=== PATIENT | female | born 1970 | race Caucasian/White ===

== ENCOUNTER 2018-09-13 10:40 | Emergency (ER) | payer MEDICARE ==
[~2018-09-13] VITALS: Ht 180.3 cm; Wt 89.8 kg
--- NOTE | 2018-09-13 10:45 | NUR ---
[id number] C/C SYNCOPAL EPISODE WHILE WALKING,+KO, -SOB,-INJURY, PAIN ON THE RIGHT SIDE OF HEAD AND LEFT KNEE. ALSO C/O FEELING LIGHTHEADED, TO ER BED 2, HOOKED TO MONITOR, CHANGED TO GOWN, AWAITING MD JORDAN
--- NOTE | 2018-09-13 11:00 | NUR ---
KYRA BEDOLLA AT BEDSIDE
[2018-09-13 11:20] LABS: BASOPHILS % (AUTO) 0.7 % (0.0-2.0); EOSINOPHILS % (AUTO) 1.5 % (0.0-6.0); HEMATOCRIT 46 % (33-45); HEMOGLOBIN 15.4 g/dL (11.5-14.8); LYMPHOCYTES # (AUTO) 1.7 /CMM (0.8-4.8); LYMPHOCYTES % (AUTO) 31.6 % (20.0-44.0); MEAN CORPUSCULAR HGB CONC 34 g/dl (31.0-36.0); MEAN CORPUSCULAR VOLUME 88 fL (82-100); MONOCYTES # (AUTO) 0.3 /CMM (0.1-1.30); MONOCYTES % (AUTO) 5.3 % (2.0-12.0); NEUTROPHILS # (AUTO) 3.3 /CMM (1.8-8.9); NEUTROPHILS % (AUTO) 60.9 % (43.0-81.0); PLATELET COUNT (AUTO) 107 /CMM (150-450); WHITE BLOOD COUNT (AUTO) 5.5 K/uL (4.3-11.0)
[2018-09-13] MEDS ORDERED: IV NS 0.9% 1,000 ML BAG IV ONE ×2 (11:30→12:00)
[2018-09-13] MEDS ORDERED: ACETAMINOPHEN 325 MG TABLET PO ONE (11:30)
[2018-09-13 11:38] LABS: CALCIUM, SERUM 8.9 mg/dL (8.5-10.1); CARBON DIOXIDE 29 mmol/L (21-32); CHLORIDE 96 mmol/L (98-107); SODIUM SERUM 133 mmol/L (136-145); UREA NITROGEN, BLOOD 10 mg/dL (7-18)
[2018-09-13 11:42] LABS: ALKALINE PHOSPHATASE 103 U/L (46-116); ASPARTATE AMINOTRANSFERASE 63 U/L (15-37); BILIRUBIN,DIRECT 0.1 mg/dL (0.0-0.2); BILIRUBIN,TOTAL 0.3 mg/dL (0.2-1.0)
[2018-09-13 11:43] LABS: ALBUMIN 3.5 g/dL (3.4-5.0); TOTAL PROTEIN, SERUM 7.5 g/dL (6.4-8.2)
[2018-09-13] MEDS ORDERED: ACETAMINOPHEN 325 MG TABLET ONE (11:45)
[2018-09-13 11:49] LABS: ALANINE AMINOTRANSFERASE 112 U/L (12-78)
[2018-09-13 11:50] LABS: GLUCOSE 546 mg/dL (74-106)
[2018-09-13] MEDS ORDERED: INSULIN REGULAR, HUMAN 100 UNIT/ML 10 ML VIAL IV ONE ×2 (12:00→12:30)
[2018-09-13] MEDS ORDERED: INSULIN REGULAR, HUMAN 100 UNIT/ML 10 ML VIAL ONE (12:17)
--- NOTE | 2018-09-13 13:09 | NUR ---
URINE SAMPLE SENT TO LAB
--- NOTE | 2018-09-13 13:50 | NUR ---
SANDWICH AND BOTTLE OF WATER GIVEN TO PT
--- NOTE | 2018-09-13 14:05 | NUR ---
IV removed. Catheter intact and site benign. Pressure and 4x4 applied to site. No bleeding noted. Patient discharged in stable condition, assisted to waiting room as someone will pick-up the patient. Written and verbal after care instructions given. Patient verbalizes understanding of instruction.
[2018-09-13 14:07] VITALS: BP 142/86
== END 2018-09-13 14:08 | disposition home or self-care (01) ==
LOC: ER 10:46
DX: S80.02XA Contusion of left knee, initial encounter (principal); R55 Syncope and collapse; E11.65 Type 2 diabetes mellitus with hyperglycemia; F31.9 Bipolar disorder, unspecified; Z98.890 Other specified postprocedural states; Z91.018 Allergy to other foods; Z88.8 Allergy status to other drugs, medicaments and biological substances; W22.8XXA Striking against or struck by other objects, initial encounter; Y93.01 Activity, walking, marching and hiking; Y92.89 Other specified places as the place of occurrence of the external cause; Y99.8 Other external cause status
CPT/HCPCS: 36415; 70450; 71045; 73564; 80048; 80076; 82010; 82962 ×2; 84484; 84703; 85025; 85730; 93005; 96361; 96374; 99284; A4606; J1815; J7030 ×2

== ENCOUNTER 2018-11-14 12:24 | Inpatient (IN) | payer MEDICARE ==
[~2018-11-14] VITALS: Ht 172.7 cm; Wt 99.3 kg
--- NOTE | 2018-11-14 12:42 | NUR ---
IV ACCESS INITIATED ON THE LEFT AC G18, BLOOD DRAWNED AND SENT TO LAB.
--- NOTE | 2018-11-14 12:44 | NUR ---
DR HARLEY FARR. AWAITING CALL BACK.
[2018-11-14 12:47] LABS: BASOPHILS % (AUTO) 0.2 % (0.0-2.0); HEMATOCRIT 41 % (33-45); HEMOGLOBIN 13.3 g/dL (11.5-14.8); LYMPHOCYTES # (AUTO) 0.8 /CMM (0.8-4.8); LYMPHOCYTES % (AUTO) 4.6 % (20.0-44.0); MEAN CORPUSCULAR HGB CONC 33 g/dl (31.0-36.0); MEAN CORPUSCULAR VOLUME 88 fL (82-100); MONOCYTES # (AUTO) 0.7 /CMM (0.1-1.30); MONOCYTES % (AUTO) 4.4 % (2.0-12.0); NEUTROPHILS # (AUTO) 15.6 /CMM (1.8-8.9); NEUTROPHILS % (AUTO) 90.8 % (43.0-81.0); PLATELET COUNT (AUTO) 102 /CMM (150-450); RED BLOOD CELL COUNT(AUTO) 4.62 MIL/uL (4.0-5.2); WHITE BLOOD COUNT (AUTO) 17.1 K/uL (4.3-11.0)
[2018-11-14 12:58] LABS: CALCIUM, SERUM 8.5 mg/dL (8.5-10.1); CREATININE 1.7 mg/dL (0.6-1.3); POTASSIUM 4.2 mmol/L (3.5-5.1)
[2018-11-14] MEDS ORDERED: INSU100V11 SQ (12:58)
[2018-11-14] MEDS ORDERED: HYDR28.32 TP (12:58)
[2018-11-14] MEDS ORDERED: FLUT1BLS IH (12:58)
[2018-11-14] MEDS ORDERED: METF-440 PO (12:58)
[2018-11-14] MEDS ORDERED: PREG50CA PO (12:58)
[2018-11-14] MEDS ORDERED: CELE200C PO (12:58)
[2018-11-14] MEDS ORDERED: GABA-534 PO (12:58)
[2018-11-14] MEDS ORDERED: IV NS 0.9% 1,000 ML BAG IV ONE (13:00)
[2018-11-14] MEDS ORDERED: LORAZEPAM INJ 2 MG/ML VIAL IV ONE (13:00)
[2018-11-14] MEDS ORDERED: CEFTRIAXONE 1GM BAG (ER ONLY) 1 GM/50 ML PIGGYBACK IV ONE (13:00)
[2018-11-14] MEDS ORDERED: FLUO40CA8 PO (13:01)
[2018-11-14] MEDS ORDERED: OLAN10TA3 PO (13:01)
[2018-11-14] MEDS ORDERED: ALPR2TAB2 PO (13:01)
[2018-11-14] MEDS ORDERED: OLAN15TA3 PO (13:01)
[2018-11-14] MEDS ORDERED: LAMO200T2 PO (13:01)
[2018-11-14] MEDS ORDERED: ZOLP10TA2 PO (13:01)
--- NOTE | 2018-11-14 13:09 | NUR ---
PT AMBULATED TO BATHROOM, UNABLE TO URINATE, REFUSES I & O CATH
[2018-11-14 13:30] VITALS: BP 100/52
[2018-11-14] MEDS ORDERED: CEFTRIAXONE 1GM BAG (ER ONLY) 50 ML IV ONE (14:10)
[2018-11-14] MEDS ORDERED: LORAZEPAM 1 MG TABLET ONE (14:11)
--- NOTE | 2018-11-14 14:11 | NUR ---
MS BOSWELL NOTE PAGED DR. SOUZA OFFICE FOR ADMISSION ORDERS, AWAITING RESPONSE. Addendum: 11/14/18 at 1839 by LETI LEIGH RN PLEASE DISREGARD, WRONG TIME
[2018-11-14] MEDS ORDERED: LORAZEPAM INJ 2 MG/ML VIAL ONE (14:18)
[2018-11-14 14:22] LABS: BILIRUBIN,DIRECT 0.5 mg/dL (0.0-0.2); BILIRUBIN,TOTAL 0.9 mg/dL (0.2-1.0)
--- NOTE | 2018-11-14 14:52 | NUR ---
PT NOTED TO BE TACHYCARDIC, W/ ORAL TEMP OF 102.7 ER MADE AWARE.
[2018-11-14] MEDS ORDERED: ACETAMINOPHEN ES 500 MG TABLET PO STA (14:55)
[2018-11-14] MEDS ORDERED: ACETAMINOPHEN ES 500 MG TABLET ONE (14:58)
--- NOTE | 2018-11-14 15:16 | NUR ---
PT SNEHA ADMITTED TOROOM 311, FLUIDS INFUSING 2L OF TOTAL 3 L
--- NOTE | 2018-11-14 15:30 | NUR ---
MS FLASK CLEANER NOTE RECEIVED PT FROM ER VIA WHEELCHAIR WITH DX OF PYELONEPHRITIS. PT IS ALERT AND ORIENTED TO SELF ONLY. NO ACUTE DISTRESS NOTED AT THIS TIME. BREATHING IS EVEN AND UNLABORED ON ROOM AIR. VS OBTAINED PER PROTOCOL. PT REFUSING FULL HEAD TO TOE AND SKIN ASSESSMENT AT THIS TIME. PT REFUSING TO ALLOW THE STAFF TO REVIEW BELONGINGS. EDUCATION PROVIDED, PT STRONGLY REFUSING AT THIS TIME. PT HAS A RIGHT WRIST #20G AND LEFT AC #18G IV THAT ARE PATENT, CLEAN, DRY AND INTACT. PENDING ADMISSION ORDERS FROM DR. SOUZA. UNIT ORIENTATION PROVIDED. BED IS LOCKED AND IN LOWEST POSITION, SIDE RAILS UP X2, BED ALARM ON, CALL LIGHT AND POSSESSIONS WITHIN REACH.
--- NOTE | 2018-11-14 15:33 | NUR ---
MS RN NOTE CONTACTED DR. SOUZA REGARDING ADMISSION ORDERS, AWAITING RESPONSE.
[2018-11-14 16:00] VITALS: BP 100/52
--- NOTE | 2018-11-14 16:00 | NUR ---
MS RN NOTE PAGED DR. SOUZA OFFICE FOR ADMISSION ORDERS, AWAITING RESPONSE.
[2018-11-14] MEDS ORDERED: IV NS 0.9% 1,000 ML BAG IV PRN (17:00)
[2018-11-14] MEDS ORDERED: LORAZEPAM 0.5 MG TABLET PO SCH (17:00)
[2018-11-14] MEDS: INSULIN GLARGINE, 100 UNIT/ML CARTRIDGE SQ SCH (17:00)
[2018-11-14] MEDS ORDERED: ALBUTEROL HALF STRENGTH 1.25 MG/3 ML VIAL.NEB NEB PRN (17:00)
[2018-11-14] MEDS ORDERED: INSULIN ASPART/LISPRO 100 UNIT/ML CARTRIDGE SQ PRN (17:00)
[2018-11-14] MEDS: GABAPENTIN 400 MG CAPSULE PO SCH (17:00)
[2018-11-14] MEDS ORDERED: DEXTROSE 50%-WATER 50 ML DISP.SYRIN IV PRN (17:00)
--- NOTE | 2018-11-14 17:00 | NUR ---
MS RN NOTE ADMISSION ORDERS RECEIVED VIA TELEPHONE READ BACK FROM . PER NO ANTIPYRETICS, HE IS AWARE OF ELEVATED TEMPERATURE AND STILL DOES NOT WANT TO ORDER ANY ADDITIONAL ANTIPYRETICS AT THIS TIME. REVIEWED HOME MEDICATIONS WITH .
--- NOTE | 2018-11-14 17:20 | NUR ---
MS RN NOTE NEURONTIN HELD BECAUSE PT IS STILL SLEEPY AND AT RISK FOR ASPIRATION AT THIS TIME.
[2018-11-14] MEDS ORDERED: BLOOD SUGAR DIAGNOSTIC 1 EACH STRIP IN SCH (17:30)
[2018-11-14] MEDS: BLOOD SUGAR DIAGNOSTIC 1 EACH STRIP IN SCH ×2 (17:32→21:19)
[2018-11-14] MEDS: IV NS 0.9% 1,000 ML IV PRN (17:32)
[2018-11-14 18:37] LABS: ALBUMIN 3.2 g/dL (3.4-5.0); BILIRUBIN,DIRECT 0.3 mg/dL (0.0-0.2); BILIRUBIN,TOTAL 0.9 mg/dL (0.2-1.0); TOTAL PROTEIN, SERUM 7.4 g/dL (6.4-8.2)
--- NOTE | 2018-11-14 18:39 | NUR ---
MS RN CLOSING NOTE PT IS ALERT AND ORIENTED X1. NO ACUTE DISTRESS NOTED AT THIS TIME. BREATHING IS EVEN AND UNLABORED ON ROOM AIR. PT STILL REFUSING FULL HEAD TO TOE AND SKIN ASSESSMENT AT THIS TIME. PT STILL REFUSING TO ALLOW THE STAFF TO REVIEW BELONGINGS. EDUCATION PROVIDED, PT STRONGLY REFUSING AT THIS TIME. RIGHT WRIST #20G IS INFUSING NS @ 75 ML/HR WITHOUT REDNESS OR SWELLING. ASPIRATION PRECAUTIONS MAINTAINED. COOLING MEASURES IN PLACE. LAST TEMPERATURE IS 101.[address] SOUZA NO ANTIPYRETICS TO BE ORDERED FOR THE PT AND HE IS AWARE OF ELEVATED TEMPERATURE. BED IS LOCKED AND IN LOWEST POSITION, SIDE RAILS UP X2, BED ALARM ON, CALL LIGHT AND POSSESSIONS WITHIN REACH. WILL ENDORSE TO FRUIT LOADER NURSE FOR CONTINUITY OF CARE.
--- NOTE | 2018-11-14 19:30 | NUR ---
RN MS OPENING NOTES RECEIVED PATIENT IN BED AWAKE, ALERT AND ORIENTED X1-2, CONFUSED AND DROWSY. VERBALLY RESPONSIVE, ABLE TO MAKE NEEDS KNOWN. BREATHING EVEN AND UNLABORED. NO SOB NOTED .TOLERATING ROOM AIR. IV ON RIGHT WRIST INTACT AND PATENT WITH NS RUNNING AT 75ML/HR. SKIN DRY AND WARM TO TOUCH. AFEBRILE NOW. ASSISTED TO BEDSIDE COMMODE DUE TO UNSTEADY GAIT. ALL OTHER NEEDS ATTENDED TO. SAFETY MEASURES IN PLACE. CALL LIGHT WITHIN REACH. WILL CONTINUE TO MONITOR.
[2018-11-14 20:00] VITALS: BP 91/53
[2018-11-14] MEDS: HEPARIN SODIUM, PORCINE 5000 UNITS/1 ML VIAL SQ SCH (21:25)
[2018-11-14] MEDS: ATORVASTATIN 40 MG TABLET PO SCH (21:25)
[2018-11-14] MEDS ORDERED: INSULIN LISPRO/ASPART 100 UNIT/ML CARTRIDGE SQ ONE (21:52)
[2018-11-14] MEDS: INSULIN ASPART/LISPRO 100 UNIT/ML CARTRIDGE SQ PRN (22:09)
--- NOTE | 2018-11-15 02:56 | NUR ---
RN MS NOTES TRANSFERRED CARE TO ELBERT CRANDALL. PATIENT IN STABLE CONDITION.
--- NOTE | 2018-11-15 03:11 | NUR ---
RN NOTES RECEIVED ENDORSEMENT FROM ELBERT FLORES FOR Pt's BRENNON. NO S/S OF ACUTE DISTRESS OR SOB NOTED. WILL CONTINUE TO MONITOR Pt's CONDITION AND SAFETY THROUGHOUT THE REMAINDER OF THE SHIFT.
[2018-11-15] MEDS: INSULIN GLARGINE, 100 UNIT/ML CARTRIDGE SQ SCH ×2 (05:24→17:42)
[2018-11-15] MEDS: BLOOD SUGAR DIAGNOSTIC 1 EACH STRIP IN SCH ×4 (06:37→21:10)
--- NOTE | 2018-11-15 06:45 | NUR ---
RN CLOSING NOTES NO SIGNIFICANT CHANGES IN Pt's CONDITION. Pt REMAINS STABLE AT THIS TIME. NO S/S OF ACUTE DISTRESS OR SOB NOTED DURING THE NIGHT. ALL NEEDS MET AND ATTENDED. Pt IS CURRENTLY RESTING IN BED COMFORTABLY. RESPIRATIONS EVEN AND UNLABORED. SAFETY MEASURES IN PLACE. BED LOW, LOCKED, HOB ELEVATED, SIDE RAILS UP, CALL LIGHT AND BEDSIDE TABLE WITHIN REACH. BED ALARM ON. WILL ENDORSE TO DAYSHIFT RN FOR Pt's BRENNON.
[2018-11-15] MEDS: INSULIN ASPART/LISPRO 100 UNIT/ML CARTRIDGE SQ PRN ×3 (06:47→21:11)
[2018-11-15 07:25] LABS: BASOPHILS % (AUTO) 0.1 % (0.0-2.0); HEMATOCRIT 35 % (33-45); HEMOGLOBIN 11.7 g/dL (11.5-14.8); LYMPHOCYTES # (AUTO) 0.7 /CMM (0.8-4.8); LYMPHOCYTES % (AUTO) 7.9 % (20.0-44.0); MEAN CORPUSCULAR HGB CONC 33 g/dl (31.0-36.0); MEAN CORPUSCULAR VOLUME 87 fL (82-100); MONOCYTES # (AUTO) 0.5 /CMM (0.1-1.30); MONOCYTES % (AUTO) 5.9 % (2.0-12.0); NEUTROPHILS # (AUTO) 7.7 /CMM (1.8-8.9); NEUTROPHILS % (AUTO) 86.1 % (43.0-81.0); PLATELET COUNT (AUTO) 84 /CMM (150-450); RED BLOOD CELL COUNT(AUTO) 4.05 MIL/uL (4.0-5.2); WHITE BLOOD COUNT (AUTO) 8.9 K/uL (4.3-11.0)
[2018-11-15 08:00] VITALS: BP 110/61
--- NOTE | 2018-11-15 08:00 | NUR ---
rn notes received patient in the bed a/o x1/2, patient has no acute respiratory distress, v/s taken T-101 F, applied cooling ice bags. Scheduled medication administered. infusing NS at 75 ml/hr intact. patient turn and reposition self in the bed. patient unsteady gait. needs attended and anticipated, bed alarm on, safety precaution mainlined all the time.
[2018-11-15 08:08] LABS: CALCIUM, SERUM 8.1 mg/dL (8.5-10.1); CREATININE 1.1 mg/dL (0.6-1.3); POTASSIUM 3.5 mmol/L (3.5-5.1)
[2018-11-15 08:54] LABS: ALBUMIN 2.5 g/dL (3.4-5.0); BILIRUBIN,TOTAL 0.6 mg/dL (0.2-1.0); CALCIUM, SERUM 8.2 mg/dL (8.5-10.1); CREATININE 1.1 mg/dL (0.6-1.3); POTASSIUM 3.5 mmol/L (3.5-5.1); TOTAL PROTEIN, SERUM 6.4 g/dL (6.4-8.2)
[2018-11-15] MEDS ORDERED: LORAZEPAM 1 MG TABLET PO SCH (09:00)
--- NOTE | 2018-11-15 09:00 | NUR ---
RN NOTES RECHECKED T-99.5 , STILL APPLIED ICE COOLING MEASURES. PATIENT UNSTEADY GAIT, SAFETY PRECAUTION MAINTAINED ALL THE TIME, CALL LIGHT WITHIN TO REACH.SCHEDULED MEDICATION ADMINISTERED.
[2018-11-15] MEDS: Fluoxetine 10 mg capsule PO SCH (09:51)
[2018-11-15] MEDS: METFORMIN 500 MG TABLET PO SCH (09:51)
[2018-11-15] MEDS: GABAPENTIN 400 MG CAPSULE PO SCH ×3 (09:52→16:38)
[2018-11-15] MEDS: NICOTINE PATCH (21MG) 21 MG PATCH.TD24 TD SCH (09:52)
[2018-11-15] MEDS: OLANZAPINE 10 MG TABLET PO SCH (09:52)
[2018-11-15] MEDS: LORAZEPAM 0.5 MG TABLET PO SCH ×2 (09:52→17:28)
[2018-11-15] MEDS: HEPARIN SODIUM, PORCINE 5000 UNITS/1 ML VIAL SQ SCH ×2 (09:57→21:05)
[2018-11-15] MEDS: CEFTRIAXONE 1 G in IV D5W 50 ML IV SCH (12:04)
[2018-11-15 15:52] VITALS: BP 131/74
--- NOTE | 2018-11-15 15:55 | NUR ---
RN NOTES STILL T-100.5F, APPLIED ICE APPLICANT , PUT ROOM IN LOW COOLING TEMPERATURE. INFUSING NS AT 75 ML/HR INTACT. MONITORING CLOSELY.
--- NOTE | 2018-11-15 15:55 | NUR ---
RN NOTES CALLED Dr SOUZA AND GET ORDER TYLENOL 500 MG PO PRN Q 4 HR, ORDER TAKEN AND CARRIED OUT FOR T-103 F.
[2018-11-15 16:00] VITALS: BP_SYST 131; BP_SYST 135; BP_DIAS 71; BP_DIAS 74
[2018-11-15] MEDS: TRAMADOL HCL 50 MG TABLET PO PRN (16:38)
--- NOTE | 2018-11-15 16:38 | NUR ---
RN NOTES ADMINISTERED ULTRAM 50 MG PO TX FOR PAIN GENERALIZED, V/S STABLE, ALSO ADMINISTERED SCHEDULED MEDICATION, CALL LIGHT WITHIN TO REACH, CONTINUED MONITORING.
[2018-11-15] MEDS: ACETAMINOPHEN ES 500 MG TABLET PO PRN (17:34)
--- NOTE | 2018-11-15 17:40 | NUR ---
RN NOTES ADMINISTERED TYLENOL 500 MG PO PRN FOR FEVER 103 Q 4 HR PRESCRIBED, CONTINUED MONITORING.
--- NOTE | 2018-11-15 18:30 | NUR ---
RN NOTES AFTER COOLING BATH AND TYLENOL T-98.5 AT THIS TIME, PATIENT RESTING IN THE BED. BS-135MG/DL COVERAGE GIVEN, ALSO ADMINISTERED SCHEDULED MEDICATION. INFUSING NS AT 75 ML/HR INTACT ON LEFT AC AREA. BED ALARM ON. CALL LIGHT WITHIN TO REACH. ENDORSED ONCOMING NURSE FOR PLAN OF CARE.
[2018-11-15] MEDS: IV NS 0.9% 1,000 ML IV PRN (18:42)
--- NOTE | 2018-11-15 19:30 | NUR ---
MS RN OPENING NOTES Received patient sleeping in bed, easily arousable. Breathing even and unlabored. Not in any distress. Peripheral IV infusing at 75mL/hr. Call light within easy reach. Bed in low, locked position. Patient stable as endorsed by the AM RN> Will continue to monitor accordingly
[2018-11-15 20:00] VITALS: BP 103/55
--- NOTE | 2018-11-15 21:00 | NUR ---
RN NOTES Clarified with Dr. Garcia if okay to give Heparin Na 5,000 units with platelet of 84. Dr. Garcia said to give it.
[2018-11-15] MEDS: ATORVASTATIN 40 MG TABLET PO SCH (21:02)
[2018-11-16] MEDS: ACETAMINOPHEN ES 500 MG TABLET PO PRN (00:13)
--- NOTE | 2018-11-16 00:13 | NUR ---
MS RN NOTES Patient's temperature is 101.6F. Cooling measures in place. Tylenol ES 500mg given as ordered. Will continue to monitor
--- NOTE | 2018-11-16 02:00 | NUR ---
RN NOTES Temperature rechecked- 99.6F. Will continue to monitor
[2018-11-16 02:04] LABS: APPEARANCE,URINE CLEAR (CLEAR); BILIRUBIN,URINE NEGATIVE (NEGATIVE); BLOOD, URINE 1+ Ery/uL (NEGATIVE); COLOR,URINE YELLOW (YELLOW); KETONES,URINE NEGATIVE (NEGATIVE); LEUKOCYTE ESTERASE ,URINE TRACE (NEGATIVE); NITRITE, URINE NEGATIVE (NEGATIVE); PROTEIN,URINE 2+ mg/dl (NEGATIVE); UGLUCOSE NEGATIVE (NEGATIVE)
[2018-11-16 03:09] LABS: BACTERIA,URINE Few /HPF (None Seen); SQUAMOUS EPITHELIAL CELL,UR Few /HPF (None Seen); WBC,URINE 21-50 /HPF (0-3)
--- NOTE | 2018-11-16 04:40 | NUR ---
RN NOTES BSL initial check was 10. Repeated BSL check- 98mg/dL. Lantus not given as BSL was low. Patient has reports decreased oral intake since yesterday. Patient provided snacks
--- NOTE | 2018-11-16 04:45 | NUR ---
RN NOTES Temperature rechecked- 97.8F. Will continue to monitor
[2018-11-16] MEDS: INSULIN GLARGINE, 100 UNIT/ML CARTRIDGE SQ SCH ×2 (04:49→17:00)
[2018-11-16] MEDS: IV NS 0.9% 1,000 ML IV PRN (06:30)
[2018-11-16] MEDS: BLOOD SUGAR DIAGNOSTIC 1 EACH STRIP IN SCH ×4 (06:33→21:20)
[2018-11-16] MEDS: INSULIN ASPART/LISPRO 100 UNIT/ML CARTRIDGE SQ PRN (06:34)
--- NOTE | 2018-11-16 06:35 | NUR ---
RN NOTES BSL 119mg/dL. No insulin coverage given as per sliding scale
--- NOTE | 2018-11-16 06:51 | NUR ---
MS RN CLOSING NOTES Patient still sleeping in bed, easily arousable. Breathing even and unlabored. Not in any distress. Afebrile. Peripheral IV infusing at 75mL/hr. No complaints as of this time. Call light within easy reach. Bed in low, locked position. Will endorse BRENNON to oncoming RN
--- NOTE | 2018-11-16 07:02 | NUR ---
MS RN NOTES PATIENT IN BED EYES CLOSED, EASY TO AROUSE. RESPOND TO VERBAL AND TACTILE STIMULI. NO ACUTE DISTRESS NOTED. BREATHING UNLABORED. NO SOB NOTED. SAFETY MEASURES IN PLACE. CALL LIGHT WITHIN REACH. WILL CONTINUE TO MONITOR ACCORDINGLY.
[2018-11-16 08:00] VITALS: BP 146/88
--- NOTE | 2018-11-16 08:00 | NUR ---
MS RN NOTES IV ACCESS ACCIDENTALLY PULLED OUT BY PATIENT. INSERTED NEW IV LINE ON RIGHT FOREARM GAUGE 22 INTROCAN X 1 ATTEMPT WITH GOOD BLOOD RETURN . SECURED WITH TRANSPARENT DRESSING AND DATED. PATIENT TOLERATED WELL.
[2018-11-16] MEDS: GABAPENTIN 400 MG CAPSULE PO SCH ×3 (09:43→17:54)
[2018-11-16] MEDS: OLANZAPINE 10 MG TABLET PO SCH (09:43)
[2018-11-16] MEDS: Fluoxetine 10 mg capsule PO SCH (09:43)
[2018-11-16] MEDS: LORAZEPAM 0.5 MG TABLET PO SCH ×2 (09:43→17:54)
[2018-11-16] MEDS: METFORMIN 500 MG TABLET PO SCH (09:44)
[2018-11-16] MEDS: HEPARIN SODIUM, PORCINE 5000 UNITS/1 ML VIAL SQ SCH ×2 (09:45→21:18)
[2018-11-16] MEDS: NICOTINE PATCH (21MG) 21 MG PATCH.TD24 TD SCH (09:46)
[2018-11-16] MEDS: CEFTRIAXONE 1 G in IV D5W 50 ML IV SCH (13:24)
[2018-11-16 16:00] VITALS: BP 108/66
--- NOTE | 2018-11-16 19:00 | NUR ---
MS RN NOTES PATIENT IN BED ALERT ORIENTED X 2-3, NO ACUTE DISTRESS NOTED. BREATHING UNLABORED. NO SOB NOTED. DUE MEDICATIONS GIVEN, NO ASE NOTED. NEEDS ATTENDED AND ANTICIPATED. KEPT CLEAN DRY AND COMFORTABLE.SAFETY MEASURES IN PLACE. CALL LIGHT WITHIN REACH. ENDORSED TO NIGHT NURSE FOR CONITUITY OF CARE.
--- NOTE | 2018-11-16 19:51 | NUR ---
MS/RN OPENING NOTES RECEIVED PATIENT IN BED, RESTING COMFORTABLY IN BED, ABLE TO VERBALIZE NEEDS, ASSISTED TO BATHROOM , REQUIRE ASSISTANCE, SKIN WARM TO TOUCH WILL MONITOR , PROVIDED JUICE AND IV ON WITH NO S/S OF INFILTRATION. BED LOCKED, CALL LIGHTS WITHIN REACH. INSTRUCTED TO CALL FOR ASSISTANCE FOR SAFETY.
[2018-11-16 20:00] VITALS: BP 112/65
[2018-11-16] MEDS: ATORVASTATIN 40 MG TABLET PO SCH (21:24)
--- NOTE | 2018-11-16 23:22 | NUR ---
MS/RN NOTES PATIENT BLOOD SUGAR CHECKED AT 139, REFUSED TO HAVE COVERAGE OF 2 UNITS SLIDING SCALE STATED SHE IS NOT GOING TO EAT DURING THE NIGHT.
[2018-11-17] MEDS: BLOOD SUGAR DIAGNOSTIC 1 EACH STRIP IN SCH ×4 (04:30→21:07)
[2018-11-17] MEDS: INSULIN GLARGINE, 100 UNIT/ML CARTRIDGE SQ SCH ×2 (04:44→17:00)
--- NOTE | 2018-11-17 04:47 | NUR ---
ms/rn notes PATIENT BLOOD SUGAR CHECK AT 108 LEVEL, REFUSE TO HAVE LANTUS INSULIN PATIENT HAS POOR APPETITE AT THIS TIME.
--- NOTE | 2018-11-17 05:50 | NUR ---
TRANSFER OF CARE RECEIVE REPORT FROM VERIFICATION MANAGER RN AT 0550 PT IN BED TRANSFER FROM 309-1 TO RM 207-1. PT A/O X 3, ALL BELONGINGS WITH PATIENT. NEEDS ATTENDED AND ANTICIPATED. KEPT CLEAN AND DRY, PT STABLE CONDITION NO S/S OF DISTRESS. WILL ENDORSE NEXT SHIFT POC.
--- NOTE | 2018-11-17 05:57 | NUR ---
309-1 transfer to 207 MS/RN NOTES PATIENT ABLE TO SLEEP DURING THE NIGHT, ASSIST TO BATHROOM FOR SAFETY, ABLE TO DRINK FLUIDS. RESPIRATIONS EVEN AND UNLABORED, SKIN WARM TO TOUCH. MONITORED FOR ANY CHANGES.BED LOCKED. CALL LIGHTS WITHIN REACH.WILL ENDORSE TO PAO RUTLEDGE 2 RN FOR BRENNON.
[2018-11-17 06:15] VITALS: BP 116/68
[2018-11-17 08:00] VITALS: BP 119/61
--- NOTE | 2018-11-17 08:00 | NUR ---
RN NOTES RECEIVED PATIENT IN THE BED RESTING, NO ACUTE RESPIRATORY DISTRESS, V/S STABLE, REFUSED PAIN AT THIS TIME. PATIENT PREFERRED TO REST. CALL LIGHT WITHIN TO REACH. INFUSING NS AT 75 ML/HR ON RIGHT FA INTACT. CALL LIGHT WITHIN TO REACH, SAFETY PRECAUTION MAINTAINED ALL THE TIME.
[2018-11-17] MEDS: OLANZAPINE 10 MG TABLET PO SCH (10:19)
[2018-11-17] MEDS: NICOTINE PATCH (21MG) 21 MG PATCH.TD24 TD SCH (10:19)
[2018-11-17] MEDS: LORAZEPAM 0.5 MG TABLET PO SCH ×2 (10:19→18:06)
[2018-11-17] MEDS: METFORMIN 500 MG TABLET PO SCH (10:19)
[2018-11-17] MEDS: Fluoxetine 10 mg capsule PO SCH (10:19)
[2018-11-17] MEDS: GABAPENTIN 400 MG CAPSULE PO SCH ×3 (10:19→18:06)
[2018-11-17] MEDS: HEPARIN SODIUM, PORCINE 5000 UNITS/1 ML VIAL SQ SCH ×2 (10:26→21:06)
--- NOTE | 2018-11-17 12:00 | NUR ---
RN NOTES BS-110 MG/DL, NO COVERAGE GIVEN, V/S STABLE, SEEN BY Dr SOUZA , ORDERS TAKEN AND CARRIED OUT, PATIENT STABLE, REFUSED PAIN. CALL LIGHT WITHIN TO REACH. SAFETY PRECAUTION MAINTAINED ALL THE TIME.
[2018-11-17] MEDS: CEFTRIAXONE 1 G in IV D5W 50 ML IV SCH (12:40)
[2018-11-17] MEDS: ACETAMINOPHEN ES 500 MG TABLET PO PRN ×2 (12:54→21:00)
--- NOTE | 2018-11-17 12:54 | NUR ---
RN NOTES V/S TAKEN T-100.7 F, ADMINISTERED TYLENOL 500 ES PO PRN , AND COOLING MEASURE, CONTINUED MONITORING.
--- NOTE | 2018-11-17 14:42 | NUR ---
RN NOTES RECHECKED T -98.1 , INFUSING NS AT 75 ML/HR INTACT. PATIENT RESTING IN THE BED, REFUSED PAIN. WILL MONITORING SAFETY.,
[2018-11-17 16:36] VITALS: BP 132/56
--- NOTE | 2018-11-17 17:00 | NUR ---
RN NOTES BS-91MG/DL HELD LANTUS 20 U, PATIENT EAT 50% OF DINNER. CONTINUED MONITORING.
[2018-11-17] MEDS: IV NS 0.9% 1,000 ML IV PRN (18:11)
--- NOTE | 2018-11-17 18:30 | NUR ---
RN NOTES PATIENT STABLE, REFUSED PAIN, NO ACUTE DISTRESS. SCHEDULED MEDICATION ADMINISTERED, V/STABLE. INFUSING NS AT 75 ML/HR ON RIGHT FA INTACT. CALL LIGHT WITHIN TO REACH. NEEDS ATTENDED AND ANTICIPATED, CALL LIGHT WITHIN TO REACH,PATIENT USING BATHROOM. BED ALARM ON. ENDORSED ONCOMING NURSE FOR PLAN OF CARE.
--- NOTE | 2018-11-17 19:31 | NUR ---
MS RN RECEIVE PT IN BED A/O X 3 RESPIRATIONS EVEN AND UNLABORED, NO SOB NOTED, NO DISTRESS, SAFETY MEASURES IN PLACE. WILL CONTINUE TO MONITOR.
[2018-11-17 20:00] VITALS: BP 118/58
--- NOTE | 2018-11-17 20:00 | NUR ---
TEMPERATURE AT 101.2 COOLING MEASURES PROVIDED WILL CONT TO MONITOR AND RE CHECK TEMP
[2018-11-17 20:19] VITALS: BP 118/58
[2018-11-17] MEDS: ZOLPIDEM TARTRATE 10 MG TABLET PO PRN (21:00)
[2018-11-17] MEDS: ATORVASTATIN 40 MG TABLET PO SCH (21:00)
[2018-11-17] MEDS: INSULIN ASPART/LISPRO 100 UNIT/ML CARTRIDGE SQ PRN (21:07)
--- NOTE | 2018-11-17 21:54 | NUR ---
BLOOD SUGAR 156 MG/DL PATIENT REFUSED SLIDING SCALE INSULIN OF 2 UNITS DESPITE EXPLAINING RISKS AND BENEFITS PT A/O X 3 OFFERED 3 TIMES STILL REFUSED PT VERBALIZED "MY BLOOD SUGAR IS OKAY"
[2018-11-18] MEDS: INSULIN GLARGINE, 100 UNIT/ML CARTRIDGE SQ SCH ×2 (05:46→17:16)
[2018-11-18] MEDS: BLOOD SUGAR DIAGNOSTIC 1 EACH STRIP IN SCH ×4 (05:46→21:13)
[2018-11-18] MEDS: INSULIN ASPART/LISPRO 100 UNIT/ML CARTRIDGE SQ PRN ×4 (05:48→22:09)
--- NOTE | 2018-11-18 06:03 | NUR ---
MS RN CLOSING PT ASLEEP AND EASILY AWAKEN, RESPIRATION EVEN AND UNLABORED, STABLE AND NOT IN DISTRESS, AM CARE RENDERED, AFEBRILE. NEEDS ATTENDED AND ANTICIPATED, KEPT CLEAN AND DRY AND COMFORTABLE. NO COMPLAIN OF PAIN. SAFETY MEASURES AT ALL TIMES. ENDORSE TO THE NEXT SHIFT POC.
[2018-11-18 06:30] LABS: BASOPHILS % (AUTO) 0.3 % (0.0-2.0); EOSINOPHILS % (AUTO) 0.4 % (0.0-6.0); HEMATOCRIT 36 % (33-45); HEMOGLOBIN 12.1 g/dL (11.5-14.8); LYMPHOCYTES # (AUTO) 0.7 /CMM (0.8-4.8); LYMPHOCYTES % (AUTO) 10.8 % (20.0-44.0); MEAN CORPUSCULAR HGB CONC 34 g/dl (31.0-36.0); MEAN CORPUSCULAR VOLUME 86 fL (82-100); MONOCYTES # (AUTO) 0.5 /CMM (0.1-1.30); MONOCYTES % (AUTO) 8.2 % (2.0-12.0); NEUTROPHILS % (AUTO) 80.3 % (43.0-81.0); PLATELET COUNT (AUTO) 94 /CMM (150-450); RED BLOOD CELL COUNT(AUTO) 4.18 MIL/uL (4.0-5.2); WHITE BLOOD COUNT (AUTO) 6.2 K/uL (4.3-11.0)
[2018-11-18 06:54] LABS: CALCIUM, SERUM 8.3 mg/dL (8.5-10.1); CREATININE 0.9 mg/dL (0.6-1.3); POTASSIUM 3.3 mmol/L (3.5-5.1)
--- NOTE | 2018-11-18 07:28 | NUR ---
MS/RN OPENING NOTE PATIENT IN BED IN STABLE CONDITION. A/O X 3. NO SIGNS OF ACUTE DISTRESS. NO COMPLAIN OF PAIN OR DISCOMFORT. ALL NEEDS ATTENDED TO. CALL LIGHT WITHIN REACH. WILL CONTINUE TO MONITOR TO ENSURE SAFETY.
[2018-11-18] MEDS: NICOTINE PATCH (21MG) 21 MG PATCH.TD24 TD SCH (08:07)
[2018-11-18] MEDS: GABAPENTIN 400 MG CAPSULE PO SCH ×3 (08:08→17:14)
[2018-11-18] MEDS: METFORMIN 500 MG TABLET PO SCH (08:08)
[2018-11-18] MEDS: LORAZEPAM 0.5 MG TABLET PO SCH (08:08)
[2018-11-18] MEDS: Fluoxetine 10 mg capsule PO SCH (08:08)
[2018-11-18] MEDS: OLANZAPINE 10 MG TABLET PO SCH (08:08)
--- NOTE | 2018-11-18 08:23 | NUR ---
MS/RN SEEN BY DR SOUZA WITH ORDERS TO DC PREVIOUS ATIVAN 0.5MG BID AND START ATIVAN 1MG PO BID, DC ROCEPHIN AND START MEREM 500MG IVPB Q8 HRS FOR UTI. ORDERS NOTED AND CARRIED OUT. HEPARIN HELD 9AM DOSE SECONDARY TO LOW PLATELETS. PATIENT NOTIFIED.
[2018-11-18] MEDS: HEPARIN SODIUM, PORCINE 5000 UNITS/1 ML VIAL SQ SCH ×2 (08:24→21:14)
[2018-11-18 08:55] VITALS: BP 137/74
[2018-11-18] MEDS: POTASSIUM CHLORIDE 20 MEQ TAB.PRT.SR PO SCH (09:10)
[2018-11-18] MEDS: MEROPENEM 1 G in IV NS 0.9% 100 ML IV SCH ×2 (12:39→21:13)
[2018-11-18] MEDS ORDERED: MEROPENEM 500 MG in IV NS 0.9% 50 ML IV SCH (13:00)
[2018-11-18] MEDS: TRAMADOL HCL 50 MG TABLET PO PRN (13:55)
[2018-11-18 16:04] VITALS: BP 143/89
[2018-11-18] MEDS: LORAZEPAM 1 MG TABLET PO SCH (17:14)
--- NOTE | 2018-11-18 18:41 | NUR ---
MS/RN CLOSING NOTE PATIENT IN BED IN STABLE CONDITION. A/O X 2-3. NO SIGNS OF ACUTE DISTRESS. NO COMPLAIN OF PAIN AND DISCOMFORT. ALL NEEDS ATTENDED TO. CALL LIGHT WITHIN REACH. WILL ENDORSE TO NEXT SHIFT FOR CONTINUITY OF CARE.
--- NOTE | 2018-11-18 19:45 | NUR ---
MS RN NOTE: PATIENT RESTING IN BED, NO ACUTE DISTRESS. BREATHING EVEN AND UNLABORED, NO SOB NOTED. IV TO LAC IN PLACE. BED LOCKED AND IN LOWEST POSITION, CALL LIGHT IN REACH. WILL CONTINUE TO MONITOR.
[2018-11-18 20:15] VITALS: BP 133/78
[2018-11-18] MEDS: ATORVASTATIN 40 MG TABLET PO SCH (21:13)
--- NOTE | 2018-11-18 21:15 | NUR ---
MS RN NOTE: PATIENT BLOOD SUGAR LEVEL 134MG/DL, TO RECEIVE 2 UNITS OF INSULIN PER SLIDING SCALE. NO S/S OF HYPER/HYPOGLYCEMIA NOTED. SNACKS AT BEDSIDE, WILL CONTINUE TO MONITOR.
[2018-11-19] MEDS: MEROPENEM 1 G in IV NS 0.9% 100 ML IV SCH ×3 (05:45→20:37)
[2018-11-19] MEDS: INSULIN GLARGINE, 100 UNIT/ML CARTRIDGE SQ SCH ×2 (05:53→17:35)
--- NOTE | 2018-11-19 06:45 | NUR ---
MS RN NOTE: PATIENT RESTING IN BED, NO ACUTE DISTRESS. BREATHING EVEN AND UNLABORED, NO SOB NOTED. IV TO LAC IN PLACE. BLOOD SUGAR LEVEL 210MG/DL, TO RECEIVE 20 UNITS OF LANTUS PER MD ORDER AND 4 UNITS PER SLIDING SCALE. NO S/S OF HYPERGLYCEMIA NOTED. BED LOCKED AND IN LOWEST POSITION, CALL LIGHT IN REACH. WILL ENDORSE TO DAY NURSE TO CONTINUE WITH PLAN OF CARE.
[2018-11-19] MEDS: BLOOD SUGAR DIAGNOSTIC 1 EACH STRIP IN SCH ×4 (07:15→21:51)
[2018-11-19] MEDS: INSULIN ASPART/LISPRO 100 UNIT/ML CARTRIDGE SQ PRN ×4 (07:16→21:53)
--- NOTE | 2018-11-19 07:44 | NUR ---
MS/RN OPENING NOTE PATIENT IN BED IN STABLE CONDITION. A/O X 3. NO SIGNS OF ACUTE DISTRESS. NO COMPLAIN OF PAIN OR DISCOMFORT AT THIS TIME. ALL NEEDS ATTENDED TO AT THIS TIME. CALL LIGHT WITHIN REACH. WILL CONTINUE TO MONITOR TO ENSURE SAFETY.
[2018-11-19 08:00] VITALS: BP 121/67
[2018-11-19] MEDS: NICOTINE PATCH (21MG) 21 MG PATCH.TD24 TD SCH (08:22)
[2018-11-19] MEDS: METFORMIN 500 MG TABLET PO SCH (08:22)
[2018-11-19] MEDS: GABAPENTIN 400 MG CAPSULE PO SCH ×3 (08:22→16:38)
[2018-11-19] MEDS: OLANZAPINE 10 MG TABLET PO SCH (08:22)
[2018-11-19] MEDS: LORAZEPAM 1 MG TABLET PO SCH ×2 (08:22→16:38)
[2018-11-19] MEDS: HEPARIN SODIUM, PORCINE 5000 UNITS/1 ML VIAL SQ SCH ×2 (08:22→20:36)
[2018-11-19] MEDS: POTASSIUM CHLORIDE 20 MEQ TAB.PRT.SR PO SCH (08:22)
[2018-11-19] MEDS: Fluoxetine 10 mg capsule PO SCH (08:22)
[2018-11-19] MEDS: TRAMADOL HCL 50 MG TABLET PO PRN ×2 (12:11→20:13)
--- NOTE | 2018-11-19 15:27 | NUR ---
MS/RN SEEN BY DR SOUZA WITH ORDER TO DC PREVIOUS ATIVAN OF 1MG AND INCREASE TO ATIVAN 2MG PO BID FOR ANXIETY. PATIENT NOTIFIED.
[2018-11-19 16:00] VITALS: BP 130/76
--- NOTE | 2018-11-19 18:26 | NUR ---
MS/RN CLOSING NOTE PATIENT IN BED IN STABLE CONDITION. A/O X 3. NO SIGNS OF ACUTE DISTRESS. NO COMPLAIN OF PAIN OR DISCOMFORT. ALL NEEDS ATTENDED TO. CALL LIGHT WITHIN REACH. WILL ENDORSE TO NEXT SHIFT FOR CONTINUITY OF CARE.
--- NOTE | 2018-11-19 19:52 | NUR ---
RN NOTES RECEIVED PATIENT AWAKE IN BED, NO SIGNS OF ACUTE RESPIRATORY DISTRESS NOTED, ALERT ORIENTED X 3, ALL SAFETY MEASURES IN PLACED, REPOSITIONED FOR COMFORT, BED IN LOWEST LOCK POSITION, ALL NEEDS ATTENDED, WILL CONTINUE TO MONITOR ACCORDINGLY.
[2018-11-19 20:00] VITALS: BP 117/71
[2018-11-19] MEDS: ATORVASTATIN 40 MG TABLET PO SCH (21:54)
[2018-11-19] MEDS: ZOLPIDEM TARTRATE 10 MG TABLET PO PRN (21:55)
[2018-11-20] MEDS: TRAMADOL HCL 50 MG TABLET PO PRN ×2 (04:37→12:16)
--- NOTE | 2018-11-20 04:37 | NUR ---
RN NOTES PATIENT COMPLAINTS OF HEADACHE AND BACKACHE, ULTRAM GIVEN PER MD ORDER FOR PRN, WILL MONITOR.
[2018-11-20] MEDS: INSULIN GLARGINE, 100 UNIT/ML CARTRIDGE SQ SCH (05:00)
[2018-11-20] MEDS: MEROPENEM 1 G in IV NS 0.9% 100 ML IV SCH ×2 (05:37→12:17)
[2018-11-20] MEDS: BLOOD SUGAR DIAGNOSTIC 1 EACH STRIP IN SCH ×3 (06:42→17:19)
--- NOTE | 2018-11-20 06:44 | NUR ---
RN NOTES ALL NEEDS ATTENDED AND MET, ABLE TO REST AND SLEEP WITH INTERVALS, SAFETY MEASURES IN PLACED, WILL ENDORSE TO AM NURSE FOR CONTINUITY OF CARE.
--- NOTE | 2018-11-20 07:04 | NUR ---
RN NOTES RN NOTES PATIENT IS FOR POSSIBLE DISCHARGE TODAY, HER CONCERN IS A CLOTHES TO CHANGE UPON DISCHARGE AND A TAXI VOUCHER FOR TRANSPORTATION. ENDORSED TO AM NURSE.
[2018-11-20] MEDS: Fluoxetine 10 mg capsule PO SCH (08:00)
[2018-11-20] MEDS: OLANZAPINE 10 MG TABLET PO SCH (08:00)
[2018-11-20] MEDS: METFORMIN 500 MG TABLET PO SCH (08:00)
[2018-11-20] MEDS: POTASSIUM CHLORIDE 20 MEQ TAB.PRT.SR PO SCH (08:00)
[2018-11-20] MEDS: GABAPENTIN 400 MG CAPSULE PO SCH ×3 (08:01→17:05)
[2018-11-20] MEDS: NICOTINE PATCH (21MG) 21 MG PATCH.TD24 TD SCH (08:01)
[2018-11-20 08:08] VITALS: BP 134/73
[2018-11-20] MEDS: HEPARIN SODIUM, PORCINE 5000 UNITS/1 ML VIAL SQ SCH (08:09)
[2018-11-20] MEDS: LORAZEPAM 1 MG TABLET PO SCH ×2 (08:52→17:05)
[2018-11-20] MEDS: INSULIN ASPART/LISPRO 100 UNIT/ML CARTRIDGE SQ PRN (12:13)
[2018-11-20] MEDS ORDERED: INSULIN GLARGINE, 100 UNIT/ML CARTRIDGE SQ SCH (17:00)
--- NOTE | 2018-11-20 18:40 | NUR ---
MS/RN NOTED THE PATIENT ALERT AND ORIENTED X3. IN ROOM AIR AND SATURATION IS AT 97%. RESPIRATION REGULAR AND UNLABORED. DENIES PAIN. DISCHARGED EDUCATION PROVIDED AND THE PATIENT VERBALIZED UNDERSTANDING. PATIENT PICKED UP BY 2 RADIATION THERAPY TECHNICIAN. LEFT THE HOSPITAL IN STABLE CONDITION.
== END 2018-11-20 18:42 | DRG 871 ==
LOC: ER 12:24 → MED 14:24 → MEDSG2 11-17 05:40 → MED 11-20 16:10
PROVIDERS: ADMIT Internal Medicine; ATTEND Internal Medicine
DX: A41.9 Sepsis, unspecified organism (principal); N17.0 Acute kidney failure with tubular necrosis; N12 Tubulo-interstitial nephritis, not specified as acute or chronic; J44.9 Chronic obstructive pulmonary disease, unspecified; I25.10 Atherosclerotic heart disease of native coronary artery without angina pectoris; F41.9 Anxiety disorder, unspecified; B18.2 Chronic viral hepatitis C; D69.6 Thrombocytopenia, unspecified; E66.9 Obesity, unspecified; K76.0 Fatty (change of) liver, not elsewhere classified; Z79.4 Long term (current) use of insulin; Z79.84 Long term (current) use of oral hypoglycemic drugs; B96.20 Unspecified Escherichia coli [E. coli] as the cause of diseases classified elsewhere; Z16.12 Extended spectrum beta lactamase (ESBL) resistance; Z68.33 Body mass index [BMI] 33.0-33.9, adult; K74.60 Unspecified cirrhosis of liver; Z72.0 Tobacco use; E11.65 Type 2 diabetes mellitus with hyperglycemia
CPT/HCPCS: 36415; 76700-TC; 80048-TC; 80053-TC; 80076-TC; 81000-TC; 82247-TC; 82248-TC; 82962-TC; 83605-TC; 84703-TC; 85025-TC; 87040-TC; 87081-TC; 87086-TC; 87186-TC; A4216; A6402; G0378; J0696; J1644; J1815; J2060; J2185; J7030; J7060; Q2036

== ENCOUNTER 2019-01-18 13:25 | Emergency (ER) | payer MEDICARE ==
[~2019-01-18] VITALS: Ht 177.8 cm; Wt 84.8 kg
[~2019-01-18 13:25] MED LIST: ALPR2TAB2 PO; CELE200C PO; FLUO40CA8 PO; FLUT1BLS IH; GABA-534 PO; HYDR28.32 TP; INSU100V11 SQ; LAMO200T2 PO; METF-440 PO; OLAN10TA3 PO; OLAN15TA3 PO; PREG50CA PO; ZOLP10TA2 PO
--- NOTE | 2019-01-18 13:50 | NUR ---
BIB RA C/O L FLANK PAIN X 2 DAYS, TO ER BED 3, HOOKED TO MONITOR, CHANGED TO GOWN, PROVIDED W WARM BLANKET, AWAITING MD JORDAN.
--- NOTE | 2019-01-18 14:01 | NUR ---
AMERICO FENTON AT BEDSIDE
[2019-01-18 14:20] LABS: APPEARANCE,URINE Slightly Cloudy (CLEAR); BILIRUBIN,URINE SMALL (NEGATIVE); BLOOD, URINE Negative Ery/uL (NEGATIVE); KETONES,URINE Negative (NEGATIVE); LEUKOCYTE ESTERASE ,URINE Small (NEGATIVE); NITRITE, URINE Negative (NEGATIVE); PROTEIN,URINE Negative (NEGATIVE); UGLUCOSE Negative (NEGATIVE); UROBILINOGEN,URINE 0.2 EU/dL (0.2)
[2019-01-18 14:21] LABS: COLOR,URINE Dark Yellow (YELLOW)
[2019-01-18 14:27] LABS: BASOPHILS % (AUTO) 0.4 % (0.0-2.0); EOSINOPHILS % (AUTO) 1.6 % (0.0-6.0); HEMATOCRIT 34 % (33-45); HEMOGLOBIN 11.3 g/dL (11.5-14.8); LYMPHOCYTES # (AUTO) 1.6 /CMM (0.8-4.8); LYMPHOCYTES % (AUTO) 40.5 % (20.0-44.0); MEAN CORPUSCULAR HGB CONC 33 g/dl (31.0-36.0); MEAN CORPUSCULAR VOLUME 88 fL (82-100); MONOCYTES # (AUTO) 0.3 /CMM (0.1-1.30); MONOCYTES % (AUTO) 7.2 % (2.0-12.0); NEUTROPHILS % (AUTO) 50.3 % (43.0-81.0); PLATELET COUNT (AUTO) 99 /CMM (150-450); RED BLOOD CELL COUNT(AUTO) 3.86 MIL/uL (4.0-5.2)
[2019-01-18] MEDS ORDERED: MORPHINE SULFATE INJ 2 MG/ML DISP.SYRIN IV ONE (14:30)
[2019-01-18] MEDS ORDERED: ONDANSETRON HCL/PF 4 MG/2 ML VIAL IVP ONE (14:30)
[2019-01-18] MEDS ORDERED: IV NS 0.9% 1,000 ML BAG IV ONE (14:30)
[2019-01-18 14:33] LABS: CALCIUM, SERUM 8.5 mg/dL (8.5-10.1); CREATININE 0.9 mg/dL (0.6-1.3); POTASSIUM 3.9 mmol/L (3.5-5.1)
[2019-01-18] MEDS ORDERED: ONDANSETRON HCL/PF 4 MG/2 ML VIAL ONE (14:35)
[2019-01-18] MEDS ORDERED: MORPHINE SULFATE INJ 4 MG/ML DISP.SYRIN ONE (14:35)
[2019-01-18 14:39] LABS: ALBUMIN 3.1 g/dL (3.4-5.0); BILIRUBIN,DIRECT 0.1 mg/dL (0.0-0.2); BILIRUBIN,TOTAL 0.3 mg/dL (0.2-1.0); TOTAL PROTEIN, SERUM 7.6 g/dL (6.4-8.2)
[2019-01-18 14:39] LABS: BACTERIA,URINE Moderate /HPF (None Seen); SQUAMOUS EPITHELIAL CELL,UR Many /HPF (None Seen)
[2019-01-18 14:40] LABS: RBC,URINE 0-2 /HPF (0-2)
--- NOTE | 2019-01-18 16:00 | NUR ---
OFFICE ASSISTANT RECEPTIONIST SEBAS AT BEDSIDE
--- NOTE | 2019-01-18 16:08 | NUR ---
IV removed. Catheter intact and site benign. Pressure and 4x4 applied to site. No bleeding noted.Patient discharged to home in stable condition. Written and verbal after care instructions given. Patient verbalizes understanding of instruction.
--- NOTE | 2019-01-18 16:10 | NUR ---
PT ASSISTED TO WAITING ROOM WHILE WAITING FOR TRANSPORTATION SET UP BY CRIPPLE CUTTER
[2019-01-18 16:12] VITALS: BP 124/76
== END 2019-01-18 16:13 | disposition home or self-care (01) ==
LOC: ER 13:27
DX: N39.0 Urinary tract infection, site not specified (principal); R11.2 Nausea with vomiting, unspecified; E11.9 Type 2 diabetes mellitus without complications; F10.10 Alcohol abuse, uncomplicated; F15.10 Other stimulant abuse, uncomplicated; Y90.9 Presence of alcohol in blood, level not specified; Z98.890 Other specified postprocedural states; Z79.4 Long term (current) use of insulin; Z91.018 Allergy to other foods; Z88.8 Allergy status to other drugs, medicaments and biological substances
CPT/HCPCS: 36415; 80048; 80076; 81001; 83690; 84703; 85025; 87086; 96361; 96374; 96375; 99283; J2270; J2405; J7030; 81000-TC

== ENCOUNTER 2019-05-08 11:43 | Emergency (ER) | payer MEDICARE ==
[~2019-05-08] VITALS: Ht 167.6 cm; Wt 85.3 kg
--- NOTE | 2019-05-08 11:46 | NUR ---
BASSAM, FROM [facility], HAD SEIZURE LASTED FOR 1 MIN, Hx 5 YRS AGO, TO ER BED 10, BREATHING EVEN AND UNLABORED, SEIZURE PRECAUTIONS APPLIED, HOOKED TO MONITOR, CHANGED TO GOWN, PROVIDED W WARM BLANKET, DR JANG AT BEDSIDE FOR EVAL.
[2019-05-08] MEDS ORDERED: ACETAMINOPHEN ES 500 MG TABLET ONE (12:08)
[2019-05-08 12:09] LABS: BASOPHILS % (AUTO) 0.5 % (0.0-2.0); EOSINOPHILS % (AUTO) 0.2 % (0.0-6.0); HEMATOCRIT 43 % (33-45); HEMOGLOBIN 14.6 g/dL (11.5-14.8); LYMPHOCYTES # (AUTO) 1.9 /CMM (0.8-4.8); LYMPHOCYTES % (AUTO) 26.2 % (20.0-44.0); MEAN CORPUSCULAR HGB CONC 34 g/dl (31.0-36.0); MEAN CORPUSCULAR VOLUME 89 fL (82-100); MONOCYTES # (AUTO) 0.3 /CMM (0.1-1.30); MONOCYTES % (AUTO) 3.9 % (2.0-12.0); NEUTROPHILS % (AUTO) 69.2 % (43.0-81.0); PLATELET COUNT (AUTO) 133 /CMM (150-450); RED BLOOD CELL COUNT(AUTO) 4.89 MIL/uL (4.0-5.2); WHITE BLOOD COUNT (AUTO) 7.2 K/uL (4.3-11.0)
[2019-05-08 12:24] LABS: CALCIUM, SERUM 9.4 mg/dL (8.5-10.1); CREATININE 1.2 mg/dL (0.6-1.3); POTASSIUM 4.1 mmol/L (3.5-5.1)
[2019-05-08 12:30] LABS: ALBUMIN 4.1 g/dL (3.4-5.0); BILIRUBIN,DIRECT 0.2 mg/dL (0.0-0.2); BILIRUBIN,TOTAL 0.4 mg/dL (0.2-1.0); TOTAL PROTEIN, SERUM 8.8 g/dL (6.4-8.2)
[2019-05-08] MEDS ORDERED: LEVETIRACETAM (500MG) 500 MG in IV NS 0.9% 100 ML IV ONE (12:30)
[2019-05-08] MEDS ORDERED: IV NS 0.9% 1,000 ML BAG IV ONE (12:30)
[2019-05-08] MEDS ORDERED: ACETAMINOPHEN ES 500 MG TABLET PO ONE (12:30)
[2019-05-08] MEDS ORDERED: LORAZEPAM INJ 2 MG/ML VIAL ONE (12:55)
[2019-05-08] MEDS ORDERED: LORAZEPAM INJ 2 MG/ML VIAL IV ONE (13:00)
--- NOTE | 2019-05-08 14:31 | NUR ---
IV removed. Catheter intact and site benign. Pressure and 4x4 applied to site. No bleeding noted. Patient discharged , assisted to waiting room in stable condition. Written and verbal after care instructions given. Patient verbalizes understanding of instruction.
--- NOTE | 2019-05-08 14:34 | NUR ---
SPOKE WITH CAT AT [facility] REGARDING TRANSPORTATION BACK TO HER FACILITY. HE WILL GIVE US A CALL BACK
--- NOTE | 2019-05-08 14:39 | NUR ---
SPOKE TO [facility] ABOUT TRANSPORTATION. WILL CALL US BACK. DIRECT NUMBER: [phone] (DIRECTOR: BETTINA) FAX: [phone]
--- NOTE | 2019-05-08 14:42 | NUR ---
PER [facility], ONE OF THEIR DRIVERS (BOB) WILL CHIEF LEGAL OFFICER PATIENT IN THE WAITING ROOM ETA 35MIN, PATIENT MADE AWARE
[2019-05-08 18:00] VITALS: BP 140/90
== END 2019-05-08 14:45 | disposition home or self-care (01) ==
LOC: ER 11:44
DX: G40.909 Epilepsy, unspecified, not intractable, without status epilepticus (principal); R51 Headache; E11.9 Type 2 diabetes mellitus without complications; Z98.890 Other specified postprocedural states; Z91.018 Allergy to other foods; Z88.8 Allergy status to other drugs, medicaments and biological substances; Z79.4 Long term (current) use of insulin
CPT/HCPCS: 36415; 73564; 80048; 80076; 85025; 93005; 96365; 96375; 99284; J1953; J2060; J7030 ×2